=== PATIENT | female | born 1955 | race Caucasian/White ===

== ENCOUNTER 2018-08-20 22:03 | Emergency (ER) | payer OTHER ==
[2018-08-20 22:10] VITALS: RESP 18
[2018-08-20 22:54] LABS: Appearance,Urine Clear (Clear); Bilirubin,Urine Negative (Negative); Blood,Urine Negative (Negative); Color,Urine Light Yellow; Glucose,Urine (UA) Negative (Negative); Ketones,Urine Negative (Negative); Leukocyte Esterase,Urine Negative (Negative); Nitrite,Urine Negative (Negative); Protein,Urine Negative (Negative); Urobilinogen,Urine <2.0 mg/dL (<2.0)
--- NOTE | 2018-08-20 23:02 | ED ---
Abdominal Pain HPI <Arleth Hawkins - Last Filed: 08/21/18 04:52> - General Source: patient Mode of arrival: ambulatory Limitations: no limitations <Sammy Narayanan - Last Filed: 08/21/18 10:20> - General Chief Complaint: Abdominal Pain Stated Complaint: Abd pain Time Seen by Provider: 08/20/18 22:14 - History of Present Illness Initial Comments: Patient is a 63-year-old female presenting from [facility] she is therefore alcohol rehab. Proximally for 5 days ago, she was complaining of some difficulty and burning with urination and she was started on antibiotics but is unsure what they were. She states that it is progressively getting worse and that the pain is achy constant sensation of the suprapubic area as well as bilateral lower back. She denies any nausea/vomiting/diarrhea as well as fevers or chills. (Smamy Narayanan) - Related Data Home Medications Medication Instructions Recorded Confirmed Acetaminophen Tab [Tylenol Tab] 650 mg PO Q4H PRN 08/20/18 08/20/18 FLUoxetine HCL [PROzac] 40 mg PO DAILY 08/20/18 08/20/18 Ibuprofen [Motrin] 600 mg PO Q6HR PRN 08/20/18 08/20/18 Multivitamin,Therapeutic [Thera] 1 tab PO DAILY 08/20/18 08/20/18 Sulfamethox-Tmp 800-160Mg [Bactrim 1 tab PO Q12HR 08/20/18 08/20/18 DS 800-160 mg] levETIRAcetam [Keppra] 500 mg PO DAILY 08/20/18 08/20/18 traZODone HCL 50 - 150 mg PO HS 08/20/18 08/20/18 Previous Rx's Medication Instructions Recorded Acetaminophen-Codeine 300-30mg 1 tab PO Q6H PRN 3 Days #12 tablet 08/21/18 [Tylenol w/codeine #3] Ciprofloxacin HCl [Cipro] 500 mg PO Q12HR #19 tablet 08/21/18 metroNIDAZOLE [Flagyl] 500 mg PO TID #29 tab 08/21/18 Allergies Allergy/AdvReac Type Severity Reaction Status Date / Time No Known Allergies Allergy Verified 08/20/18 22:23 Review of Systems ROS Other: All systems not noted in ROS Statement are negative. <Arleth Hawkins P - Last Filed: 08/21/18 04:52> ROS Other: All systems not noted in ROS Statement are negative. <Sammy Narayanan - Last Filed: 08/21/18 10:20> ROS Statement: Those systems with pertinent positive or pertinent negative responses have been documented in the HPI. Constitutional: Negative for chills, fatigue and fever. HENT: Negative for congestion. Respiratory: Negative for chest tightness, shortness of breath and wheezing. Negative for cough Cardiovascular: Negative for chest pain and palpitations. Gastrointestinal: Positive for abdominal pain. Negative for abdominal distention , diarrhea, nausea and vomiting. Genitourinary: Positive for dysuria. Musculoskeletal: Negative for neck pain and neck stiffness. Positive for back pain Skin: Negative for color change. Neurological: Negative for dizziness, speech difficulty, weakness and light- headedness. Psychiatric/Behavioral: Negative for agitation and confusion. Negative for anxiety (Sammy Narayanan) Past Medical History Past Medical History: Seizure Disorder Past Surgical History: Tonsillectomy Additional Past Surgical History / Comment(s): ectopic Past Psychological History: Depression Smoking Status: Never smoker Past Alcohol Use History: Abuse Past Drug Use History: None Reported <NarayananAjitho Laura - Last Filed: 08/21/18 10:20> General Exam <Arleth Hawkins P - Last Filed: 08/21/18 04:52> Limitations: no limitations <Sammy Narayanan - Last Filed: 08/21/18 10:20> - General Exam Comments Initial Comments: Constitutional: Pt is oriented to person, place, and time. Pt appears well- developed and well-nourished. No distress. HENT: Head: Normocephalic and atraumatic. Eyes: EOM are normal. Neck: Normal range of motion. Neck supple. Cardiovascular: Normal rate, regular rhythm, S1 normal, S2 normal and normal heart sounds. Exam reveals no gallop and no friction rub. No murmur heard. Pulmonary/Chest: Effort normal and breath sounds normal. No tachypnea and no bradypnea. No respiratory distress. No wheezes or rales noted. Abdominal: Soft. Bowel sounds are normal. Pt exhibits no shifting dullness, no distension, no pulsatile liver, no fluid wave, no abdominal bruit and no ascites. There is no tenderness. There is no rigidity, no rebound, no guarding, no tenderness at McBurney's point and negative Krueger's sign. Musculoskeletal: Normal range of motion. Neurological: Pt is alert and oriented to person, place, and time. No cranial nerve deficit. Skin: Skin is warm and dry. No rash noted. Pt is not diaphoretic. No erythema. No pallor. Psychiatric: Pt has a normal mood and affect. Pt behavior is normal. Thought content normal. (Sammy Narayanan) Vital Signs 08/20/18 08/20/18 08/21/18 22:05 23:46 03:57 Temperature 98.8 F 97.6 F Pulse Rate 93 79 67 Respiratory 18 18 18 Rate Blood Pressure 136/97 115/72 108/77 O2 Sat by Pulse 98 96 98 Oximetry Medical Decision Making - Lab Data Result diagrams: 08/20/18 22:45 08/20/18 22:45 <Arleth Hawkins - Last Filed: 08/21/18 04:52> - Lab Data Result diagrams: 08/20/18 22:45 08/20/18 22:45 <Sammy Narayanan - Last Filed: 08/21/18 10:20> - Medical Decision Making Laboratory studies show that there is no significant leukocytosis and electrolytes were relatively within normal limits. There is no evidence of acute kidney injury or urinary tract infection. Because the patient continued to have some pain and there is no obvious source of infection, CT of the abdomen was performed and showed evidence of diverticulitis. Because the patient was well-appearing, it was thought that she could be treated as an outpatient with Cipro Floxin and Flagyl. Additionally, the patient did express some suicidal thoughts and therefore patient will be evaluated by mental health. At the time of this note, this evaluation was pending and case is being signed out to Dr. Hawkins who will follow-up on mental health recommendations. If the patient is cleared for mental health, she'll be sent with a prescription for ciprofloxacin and Flagyl. If she requires inpatient treatment from a mental health standpoint here, she can continue by mouth antibiotics while in the hospital. (Sammy Narayanan) - Lab Data Lab Results 11/08/20/18 08/20/18 Range/Units 22:15 22:45 22:45 WBC 6.4 (3.8-10.6) k/uL RBC 4.27 (3.80-5.40) m/uL Hgb 13.8 (11.4-16.0) gm/dL Hct 42.5 (34.0-46.0) % MCV 99.5 (80.0-100.0) fL MCH 32.4 (25.0-35.0) pg MCHC 32.6 (31.0-37.0) g/dL RDW 13.6 (11.5-15.5) % Plt Count 250 (150-450) k/uL Neutrophils % 59 % Lymphocytes % 22 % Monocytes % 15 % Eosinophils % 1 % Basophils % 1 % Neutrophils # 3.8 (1.3-7.7) k/uL Lymphocytes # 1.4 (1.0-4.8) k/uL Monocytes # 0.9 (0-1.0) k/uL Eosinophils # 0.1 (0-0.7) k/uL Basophils # 0.0 (0-0.2) k/uL Sodium 136 L (137-145) mmol/L Potassium 4.7 (3.5-5.1) mmol/L Chloride 104 (98-107) mmol/L Carbon Dioxide 25 (22-30) mmol/L Anion Gap 7 mmol/L BUN 21 H (7-17) mg/dL Creatinine 0.76 (0.52-1.04) mg/dL Est GFR (CKD-EPI)AfAm >90 (>60 ml/min/1.73 sqM) Est GFR (CKD-EPI)NonAf 85 (>60 ml/min/1.73 sqM) Glucose 90 (74-99) mg/dL Calcium 10.4 H (8.4-10.2) mg/dL Urine Color Light Yellow Urine Appearance Clear (Clear) Urine pH 7.0 (5.0-8.0) Ur Specific Cocoa 1.010 (1.001-1.035) Urine Protein Negative (Negative) Urine Glucose (UA) Negative (Negative) Urine Ketones Negative (Negative) Urine Blood Negative (Negative) Urine Nitrite Negative (Negative) Urine Bilirubin Negative (Negative) Urine Urobilinogen <2.0 (<2.0) mg/dL Ur Leukocyte Esterase Negative (Negative) Urine Opiates Screen Not Detected (NotDetected) Ur Oxycodone Screen Not Detected (NotDetected) Urine Methadone Screen Not Detected (NotDetected) Ur Propoxyphene Screen Not Detected (NotDetected) Ur Barbiturates Screen Not Detected (NotDetected) U Tricyclic Antidepress Not Detected (NotDetected) Ur Phencyclidine Scrn Not Detected (NotDetected) Ur Amphetamines Screen Not Detected (NotDetected) U Methamphetamines Scrn Not Detected (NotDetected) U Benzodiazepines Scrn Detected H (NotDetected) Urine Cocaine Screen Not Detected (NotDetected) U Marijuana (THC) Screen Detected H (NotDetected) Disposition <Arleth Hawkins P - Last Filed: 08/21/18 04:52> Is patient prescribed a controlled substance at d/c from ED?: Yes When asked, does pt state using other controlled substances?: No If prescribed controlled substance>3 days was MAPS reviewed?: Prescribed <3 Days <Sammy Narayanan - Last Filed: 08/21/18 10:20> Clinical Impression: Diverticulitis Disposition: HOME SELF-CARE Condition: Good Instructions: Diverticulitis (ED) Prescriptions: Acetaminophen-Codeine 300-30mg [Tylenol w/codeine #3] 1 tab PO Q6H PRN 3 Days # 12 tablet PRN Reason: Pain Ciprofloxacin HCl [Cipro] 500 mg PO Q12HR #19 tablet metroNIDAZOLE [Flagyl] 500 mg PO TID #29 tab Referrals: None,Stated [Primary Care Provider] - 1-2 days
[2018-08-20] MEDS ORDERED: KETOROLAC 30 MG/ML 1 ML VIAL IVP STA (23:05)
[2018-08-20 23:06] LABS: Amphetamine Screen,Urine Not Detected (NotDetected); Barbiturate Screen,Urine Not Detected (NotDetected); Benzodiazepines Screen,Urine Detected (NotDetected); Cocaine Screen,Urine Not Detected (NotDetected); Methadone Screen, Urine Not Detected (NotDetected); Opiate Screen,Urine Not Detected (NotDetected); Oxycodone Screen, Urine Not Detected (NotDetected); Phencyclidine Screen,Urine Not Detected (NotDetected); Tricyclic Antidepressant,Urine Not Detected (NotDetected); Urn Cannabinoid Scrn Detected (NotDetected)
[2018-08-20 23:18] LABS: Anion Gap 7 mmol/L; Blood Urea Nitrogen 21 mg/dL (7-17); Calcium 10.4 mg/dL (8.4-10.2); Carbon Dioxide 25 mmol/L (22-30); Chloride 104 mmol/L (98-107); Glucose 90 mg/dL (74-99); Potassium 4.7 mmol/L (3.5-5.1); Sodium 136 mmol/L (137-145)
[2018-08-20 23:30] LABS: Basophils % (A) 1 %; Eosinophils # (A) 0.1 k/uL (0-0.7); Eosinophils % (A) 1 %; HCT 42.5 % (34.0-46.0); HGB 13.8 gm/dL (11.4-16.0); Lymphocytes # (A) 1.4 k/uL (1.0-4.8); Lymphocytes % (A) 22 %; MCH 32.4 pg (25.0-35.0); MCHC 32.6 g/dL (31.0-37.0); MCV 99.5 fL (80.0-100.0); Mean Platelet Volume 7.4; Monocytes # (A) 0.9 k/uL (0-1.0); Monocytes % (A) 15 %; Neutrophils # (A) 3.8 k/uL (1.3-7.7); Neutrophils % (A) 59 %; Platelet Count 250 k/uL (150-450); RBC 4.27 m/uL (3.80-5.40); RDW 13.6 % (11.5-15.5); WBC 6.4 k/uL (3.8-10.6)
--- NOTE | 2018-08-21 00:57 | CT ---
EXAMINATION TYPE: CT abdomen pelvis w con DATE OF EXAM: 08/21/2018 COMPARISON: None HISTORY: lower abdominal pain CT DLP: 477.8 mGycm Automated exposure control for dose reduction was used. TECHNIQUE: Helical acquisition of images was performed from the lung bases through the pelvis. CONTRAST: Performed without Oral Contrast and with IV Contrast, patient injected with 100 mL of Isovue 300. FINDINGS: Lung bases are clear. There is no pleural effusion. Heart size is normal. There is no pericardial eff usion. Liver spleen pancreas appear normal. Gallbladder is contracted. Bile ducts are not dilated. There is no adrenal mass. Kidneys show satisfactory contrast opacification. There is no hydronephrosi s. There is no retroperitoneal adenopathy. Abdominal aorta is atheromatous. Appendix appears normal. Small bowel shows no evidence of obstruction. I see no small bowel wall thickening. There is a 7 cm segment of mid sigmoid colon with wall thickening and edema. There are numerous sigmo id diverticula. There is no evidence of an abscess. I see no free air. Uterus is anteverted and tilte d to the right side. There is fibroid on the anterior wall of the uterus. There are small uterine javier cifications. There are numerous phleboliths in the pelvis. Bladder distends smoothly. There is no ing uinal hernia. There is 5% depression superior endplate of L3. There is 15% depression superior endpla te of T12. IMPRESSION: Sigmoid diverticulosis with segment of wall thickening of the mid sigmoid colon consistent with colit is or diverticulitis. No evidence of an abscess. Normal appendix. Mild compression fractures of the spine of uncertain age.
[2018-08-21] MEDS ORDERED: metroNIDAZOLE 500 MG TAB PO STA (01:05)
[2018-08-21] MEDS ORDERED: CIPROFLOXACIN HCL 500 MG TAB PO STA (01:05)
[2018-08-21 03:59] VITALS: BP 108/77; PULSE 67; TEMP 97.6
== END 2018-08-21 05:09 | disposition home or self-care (01) ==
LOC: EC 22:03
DX: K57.92 Diverticulitis of intestine, part unspecified, without perforation or abscess without bleeding (principal); R45.851 Suicidal ideations; G40.909 Epilepsy, unspecified, not intractable, without status epilepticus; F32.9 Major depressive disorder, single episode, unspecified; Z79.899 Other long term (current) drug therapy
CPT/HCPCS: 82075; 36415; 80048; 85025; 81003; 80306; 74177; 99284; 96374; J1885; Q9967